=== PATIENT | male | born 1965 | race Caucasian/White ===

== ENCOUNTER → 2020-12-17 13:27 | Outpatient (CLI) | payer OTHER, SELFPAY ==
--- NOTE | 2021-01-16 08:31 | P.HOLT.S_ITS ---
Dust Collector Attendant Report Referral & Results Date Patient Seen: 12/17/20 Requesting provider: Anthony Mcnamara Indication: Palpitations Duration of monitoring (days): 13 Diary information: There were 14 patient triggered events and 0 patient diary entries Patient triggered events were associated with (within 45 seconds) sinus rhythm, PVCs including trigeminy, PACs, and SVT Data: Minimum heart rate identified was 44 beats per minute at 04:31 on 12/20/2020 Maximum sinus heart rate was 172 beats per minute at 15:35 on 12/20/2020 Maximum overall heart rate was 193 beats per minute at 08:44 on 12/26/2020 during a 5 beat run of SVT Less than 1% of identified beats were ventricular or supraventricular ectopic in origin, which would classify them as rare. There 48 runs of SVT the fastest being the 5 beat run noted above and the longest lasting 15.9 seconds at a rate of 115 beats per minute which might suggest more atrial tachycardia rather than true SVT There was also a 34.6 second run of ventricular trigeminy Impression: This study demonstrates rare PACs and PVCs. Also very rare very brief runs of SVT Given patient events connected with multiple different dysrhythmias, difficult to connect patient reported sense of palpitations any one dysrhythmia Clinical correlation suggested although no serious dysrhythmias identified on this study
== END ==
PROVIDERS: PCP Family Medicine; Referring Provider Family Medicine; Visit Provider Family Medicine
DX: R00.2 Palpitations (principal)
CPT/HCPCS: 93244; 93246

== ENCOUNTER → 2021-01-04 07:51 | Outpatient (CLI) | payer OTHER, SELFPAY ==
--- NOTE | 2021-01-04 | DI.ECHO.S_ITS ---
[facility]---------+ [facility] +---------+ : : [address] : [place] : : : : [id number] : : : : Phone: [phone]---------+ Echocardiogram Report + + :Name: YOSSI VOGEL Study Date: 01/04/2021 Height: 75 in : :[facility] ReadingLocation: Weight: 225 lb : : Gender: Male BSA: 2.3 m2 : :: 1965 Age: 55 yrs BP: 147/86 mmHg: :Ordering Physician: Keaton : :Anders Performed By: Irineo Oneill : :Referring: KEATON HARDIN : + + Interpretation Summary Left ventricular systolic function appears normal with an estimated ejection fraction of 55 to 60% without any focal wall motion abnormality. Left ventricular size and wall thickness appear normal with probable normal diastolic function and filling pressures. The right ventricle is at the upper limits of normal in size with systolic function at the lower limits of normal. Right ventricular systolic pressure cannot be estimated but CVP is likely around 3 mmHg. The left atrium is borderline enlarged. The cardiac valves appear anatomically normal without any significant functional abnormality. The ascending aorta is borderline enlarged. Procedure: A two-dimensional transthoracic echocardiogram with color flow and Doppler was performed. The study quality was technically adequate. There is no prior echocardiogram noted for this patient. The patient was in sinus rhythm with heart rates between 59-64 bpm during the exam. Left Ventricle: The left ventricle appears normal in size, wall thickness, and systolic function without any focal wall motion abnormalities. The estimated left ventricular end diastolic volume is 97 ml. The ejection fraction is estimated to be 55-60%. Diastolic parameters suggest probable normal left ventricular diastolic function and normal filling pressures. Right Ventricle: The right ventricle is at the upper limits of normal in size. Right ventricular systolic function is at the lower limits of normal. Atria: The left atrium is borderline dilated. Right atrial size is normal. There is no Doppler evidence for an interatrial shunt. Mitral Valve: The mitral valve is normal in structure and function. There is trace mitral regurgitation. Aortic Valve: The aortic valve is normal in structure and function. The aortic valve is trileaflet. The aortic valve opens well. No aortic regurgitation is present. Tricuspid Valve: The tricuspid valve is normal in structure and function. No tricuspid regurgitation. Pulmonary artery pressures cannot be estimated because of the lack of a measurable TR jet velocity but the IVC suggests a CVP of around 3 mmHg. Pulmonic Valve: The pulmonic valve is not well seen, but is grossly normal. There is no pulmonic valvular regurgitation. There is no significant valvular heart disease. Great Vessels: The aortic root is normal size. The ascending aorta is at the upper limits of normal in size. The IVC is of normal diameter and collapses greater than 50% with a sniff. This suggests a low right atrial pressure of 3 mm Hg. Pericardium/ Pleura There is no pericardial effusion. There is no pleural effusion. MMode/2D Measurements & Calculations LVIDd: 5.3 cm LVOT diam: 2.4 cm LVIDs: 3.6 cm Ao root diam: 3.3 cm FS: 32.2 % asc Aorta Diam: 3.6 cm IVSd: 0.74 cm LVPWd: 0.71 cm LV vásquez. diameter/BSA (cm/m^2): 2.3 LV sys. diameter/BSA (cm/m^2): 1.6 LA A2 area: 25.4 cm2 RA long axis: 5.0 cm LA A4 area: 21.3 cm2 RA area: 15.3 cm2 LA length (vol): 5.9 cm RA vol: 40.0 ml LA vol: 77.3 ml RA : 17.3 ml/m2 LA vol index: 33.5 ml/m2 TAPSE: 3.0 cm Doppler Measurements & Calculations Ao V2 max: 115.5 cm/sec LVOT Max Pasha: 97.9 cm/sec Ao V2 mean: 84.0 cm/sec LV V1 max P.8 mmHg Ao max P.3 mmHg LV V1 VTI: 19.7 cm Ao mean P.1 mmHg ERICK(I,D): 3.8 cm2 Ao V2 VTI: 23.0 cm ERICK(V,D): 3.8 cm2 sev ratio: 0.86 ERICK indexed to BSA (cm^2/m^2): 1.7 MV E max pasha: 64.4 cm/sec PA pr(Accel): 39.6 mmHg MV A max pasha: 56.6 cm/sec MV E/A: 1.1 Med Peak E' Pasha: 9.0 cm/sec E/E' med: 7.2 Lat Peak E' Pasha: 12.7 cm/sec E/E' lat: 5.1 E/e' average: 6.1 MV dec time: 0.23 sec [facility] 87.6 ml Reading Physician:09:21 AM
== END ==
PROVIDERS: PCP Family Medicine; Referring Provider Family Medicine; Visit Provider Family Medicine
DX: R06.09 Other forms of dyspnea (principal); R53.81 Other malaise; R00.2 Palpitations
CPT/HCPCS: 93306

== ENCOUNTER → 2021-01-23 12:59 | Outpatient (CLI) | payer OTHER, SELFPAY ==
[2021-01-23 16:04] LABS: COVID19 -Nasal RAPID Negative (Negative)
== END ==
PROVIDERS: PCP Family Medicine; Visit Provider Family Medicine
DX: Z01.812 Encounter for preprocedural laboratory examination (principal); Z20.822 Contact with and (suspected) exposure to COVID-19
CPT/HCPCS: 87635

== ENCOUNTER → 2021-01-24 13:02 | Outpatient (CLI) | payer OTHER, SELFPAY ==
--- NOTE | 2021-01-25 11:39 | PM.TREADMILL ---
Cardiac Stress Test Report Referral & Results Date Patient Seen: 01/25/21 Time Patient Seen: 11:39 Requesting provider: Anthony Mcnamara Indication: palpitations Rest ECG: Sinus rhythm Procedure Note: Standard Juni protocol, 10:01, 10.7 METS Good exercise capacity, KARLY -7% Normal hemodynamic response to exercise No chest pain or anginal symptoms No significant ST changes at peak exercise Occasional PVCs Impression: Normal exercise stress test Please note: Actual ECG tracings can be found in the PACS system.
--- NOTE | 2021-01-26 00:10 | DI.NM.S_ITS ---
DATE OF SERVICE: 01/24/2021 PROCEDURE: Exercise perfusion study. INDICATION: Palpitation, dyspnea on exertion, hypertension, hyperlipidemia. RADIOPHARMACEUTICAL: 24.7 millicurie technetium-99m Myoview IV was injected at stress and 25.6 millicurie technetium-99m Myoview IV was injected at rest. CARDIAC STRESS: The patient underwent exercise perfusion study under the supervision of an attending staff. The patient walked on Juni protocol for 10 minutes and 01 seconds, achieved 95 percent of target heart rate. Baseline blood pressure 132/84 mmHg and peak blood pressure 200/84 mmHg. The patient achieved 12.8 METs of workload and functional aerobic impairment -7 percent. Baseline EKG revealed sinus rhythm. During stress, there were no convincing ischemic changes seen. Occasional PVCs without any ventricular tachycardia. No anginal symptoms. The patient felt dyspnea and fatigue. RAW DATA: There is increased diaphragmatic activity. GATED STUDY: Resting LV ejection fraction 57 and stress LV ejection fraction 66 percent without any obvious wall motion abnormalities. Resting end-diastolic volume 132 mL. TID ratio 0.91, which is within normal limits. Lung/heart ratio 0.27, which is within normal limits. MYOCARDIAL PERFUSION: Stress supine and resting supine images revealed moderate- size, moderate to severely decreased perfusion of inferior wall extending into the inferoapex, which got completely resolved during prone images suggestive of diaphragmatic tissue attenuation artifact. No convincing ischemia or infarction pattern seen. CONCLUSION: I will call this study likely a normal myocardial perfusion study with evidence of diaphragmatic tissue attenuation artifact, which got resolved during prone images. Good exercise tolerance. Mildly hypertensive blood pressure response. Preserved left ventricular function. No significant arrhythmias other than occasional premature ventricular contractions. Overall, this is a low-risk myocardial perfusion scan. Carlton Padron - MISHA/kristen/sharad doc#: [id number]/job#: [id number] dd: 01/25/2021 17:19:00 dt: 01/25/2021 19:29:00 DICTATING MD/COPIES TO: Valdo Khan MD COPIES MNE: ASIF;
== END ==
PROVIDERS: PCP Family Medicine; Referring Provider Family Medicine; Visit Provider Family Medicine
DX: R00.2 Palpitations (principal); R53.81 Other malaise; I10 Essential (primary) hypertension; E78.5 Hyperlipidemia, unspecified
CPT/HCPCS: 78452; 93017; A9502

== ENCOUNTER → 2024-03-14 16:29 | Outpatient (CLI) | payer OTHER, SELFPAY ==
--- NOTE | 2024-03-14 16:31 | DI.RAD.S_ITS ---
PROCEDURE: XR MANDIBLE MIN 4V INDICATIONS: JAW PAIN TECHNIQUE: Four views of the mandible were acquired. COMPARISON: None. FINDINGS: Bones: No fractures or dislocations. No suspicious bony lesions. Partially visualized ACDF hardware. Soft tissues: Visualized sinuses appear clear. No suspicious soft tissue densities. IMPRESSION: No acute bony abnormality. Normal appearance of the temporomandibular joints. Dictated by: Charlie Schreiber M.D. on 03/15/2024 at 8:58 Approved by: Charlie Schreiber M.D. on 03/15/2024 at 9:00
== END ==
PROVIDERS: PCP Family Medicine; Referring Provider Family Medicine; Visit Provider Family Medicine
DX: R68.84 Jaw pain (principal); G89.29 Other chronic pain
CPT/HCPCS: 70110

== ENCOUNTER → 2025-04-12 16:58 | Outpatient (CLI) | payer OTHER, SELFPAY ==
[2025-04-12 17:23] LABS: Add Manual Diff / Slide Review NO; Hematocrit 48.3 % (41-53); Hemoglobin 16.2 g/dL (13.5-17.5); Lymphocytes Absolute Auto 2500 /uL (1100-4500); Mean Corpuscular HGB Conc 33.6 % (30-36); Mean Corpuscular Hemoglobin 30.1 PG (26-34); Mean Corpuscular Volume 89.5 fL (80-100); Platelet Count 182 X10^3/uL (150-400)
[2025-04-12 17:35] LABS: Alanine Aminotransferase 27 IU/L (<50); Albumin 4.4 g/dL (3.5-5.0); Albumin Globulin Ratio 1.6 (1.0-2.8); Alkaline Phosphatase 53 U/L (38-126); Blood Urea Nitrogen 18 mg/dL (9-20); Calcium 9.4 mg/dL (8.4-10.2); Carbon Dioxide 23 mmol/L (22-32); Chloride 104 mmol/L (98-107); Estimated Glomerular Filt Rate > 60 mL/min (>60); Globulin 2.7 g/dL (1.7-4.1); Glucose 92 mg/dL (70-99); HEMOLYSIS < 15 (0-50); Potassium 4.0 mmol/L (3.4-5.1); Sodium 136 mmol/L (137-145); Total Protein 7.1 g/dL (6.3-8.2)
[2025-04-12 17:40] LABS: Hemoglobin A1C% w Est Avg Glu 5.4 % (4.0-6.0)
[2025-04-12 18:06] LABS: Thyroid Stimulating Hormone 3.24 uIU/mL (0.47-4.68)
[2025-04-12 18:09] LABS: Estradiol, Total 34.8 pg/mL
[2025-04-13 23:09] LABS: Cholesterol,Total 211 mg/dL (100-199); HDL Cholesterol 45 mg/dL (>39); LDL Cholesterol Cal 149 mg/dL (0-99); Triglycerides 95 mg/dL (0-149)
== END ==
PROVIDERS: PCP Family Medicine; Referring Provider Specialist; Visit Provider Specialist
DX: E78.2 Mixed hyperlipidemia (principal); G47.33 Obstructive sleep apnea (adult) (pediatric); I10 Essential (primary) hypertension; R68.82 Decreased libido; R73.09 Other abnormal glucose; Z51.81 Encounter for therapeutic drug level monitoring
CPT/HCPCS: 36415; 80053; 80061; 82670; 83036; 83525; 84153; 84154; 84403; 84443; 85025; 86376; 86800

== ENCOUNTER → 2025-05-16 16:08 | Outpatient (CLI) | payer OTHER, SELFPAY ==
[2025-05-16 17:20] LABS: Add Manual Diff / Slide Review NO; Hematocrit 46.4 % (41-53); Hemoglobin 16.3 g/dL (13.5-17.5); Lymphocytes Absolute Auto 2300 /uL (1100-4500); Mean Corpuscular HGB Conc 35.1 % (30-36); Mean Corpuscular Hemoglobin 30.5 PG (26-34); Mean Corpuscular Volume 87.0 fL (80-100); Platelet Count 179 X10^3/uL (150-400)
[2025-05-16 17:29] LABS: Hemoglobin A1C% w Est Avg Glu 5.5 % (4.0-6.0)
[2025-05-16 17:51] LABS: Alanine Aminotransferase 39 IU/L (<50); Albumin 4.5 g/dL (3.5-5.0); Albumin Globulin Ratio 1.7 (1.0-2.8); Alkaline Phosphatase 56 U/L (38-126); Blood Urea Nitrogen 18 mg/dL (9-20); Calcium 9.3 mg/dL (8.4-10.2); Carbon Dioxide 26 mmol/L (22-32); Chloride 102 mmol/L (98-107); Cholesterol 246 mg/dL (140-199); Estimated Glomerular Filt Rate > 60 mL/min (>60); Globulin 2.6 g/dL (1.7-4.1); Glucose 107 mg/dL (70-99); HDL Cholesterol 57 mg/dL (40-60); HEMOLYSIS < 15 (0-50); Potassium 4.1 mmol/L (3.4-5.1); Sodium 138 mmol/L (137-145); Total Protein 7.1 g/dL (6.3-8.2); Triglycerides 228 mg/dL (35-150)
[2025-05-16 18:21] LABS: Thyroid Stimulating Hormone 3.03 uIU/mL (0.47-4.68)
[2025-05-16 18:23] LABS: Estradiol, Total 21.2 pg/mL
[2025-05-20 02:09] LABS: Insulin Level Total 26.3 uIU/mL (2.6-24.9)
[2025-05-20 06:36] LABS: PSA, Total 0.9 ng/mL (0.0-4.0)
[2025-05-21 12:08] LABS: Anti Thyroglobulin Antibody <1.0 IU/mL (0.0-0.9)
== END ==
PROVIDERS: PCP Family Medicine; Referring Provider Specialist; Visit Provider Specialist
DX: E28.0 Estrogen excess (principal); E78.2 Mixed hyperlipidemia; G47.33 Obstructive sleep apnea (adult) (pediatric); I10 Essential (primary) hypertension; R68.82 Decreased libido; R73.09 Other abnormal glucose
CPT/HCPCS: 36415; 80053; 80061; 82670; 83036; 83525; 84153; 84154; 84403; 84443; 85025; 86376; 86800